=== PATIENT | male | born 1970 | race Caucasian/White ===

== ENCOUNTER → 2016-09-22 | Outpatient (CLI) | payer BC | END | disposition home or self-care (01) | LOC: LABWHC1 12:00 | PROVIDERS: ATTEND Surgery | DX: Z01.812 Encounter for preprocedural laboratory examination (principal) | CPT/HCPCS: 86850; 86900; 86901 ==

== ENCOUNTER 2016-09-26 06:27 | Day surgery (SDC) | payer BC ==
[~2016-09-26 06:27] MED LIST: ceFAZolin 3 GM in SODIUM CHLORIDE 0.9% 100 ML IVPB ONE
[2016-09-26 06:57] VITALS: RESP 16
[2016-09-26] MEDS: LACTATED RINGERS 1,000 ML IV SCH ×2 (07:04→07:25)
[2016-09-26] MEDS: LIDOCAINE 1% 20 ML VIAL (10MG/ML) FOR IV START INTRADERMA PRN ×3 (07:04→07:25)
[2016-09-26] MEDS: ONDANSETRON 4 MG/2 ML VIAL IVP ONE ×3 (07:23→10:46)
[2016-09-26] MEDS: HEPARIN SODIUM,PORCINE 5,000 UNIT/ML 1 ML VIAL SQ ONE ×2 (07:25→07:33)
[2016-09-26] MEDS: DEXAMETHASONE SOD PHOSPHATE 10 MG/ML 1 ML VIAL IV ONE ×2 (07:25→07:32)
[2016-09-26] MEDS ORDERED: BUPIVACAIN-EPI 0.25%-1:200,000 30 ML VIAL SQ ONE ×2 (07:27→09:48)
--- NOTE | 2016-09-26 07:55 | P.GSHP ---
History of Present Illness H&P Date: 09/26/16 Chief Complaint: Incarcerated ventral hernia This is a 46-year-old male referred from Dr. Trujillo. Patient presents today for laparoscopic robotic-assisted repair of incarcerated ventral hernia. Patient developed a tender mass just above the umbilicus. There is an incarcerated ventral hernia. - Constitutional Constitutional: Reports as per HPI Past Medical History Past Medical History: Hyperlipidemia History of Any Multi-Drug Resistant Organisms: None Reported Past Surgical History: No Surgical Hx Reported Past Anesthesia/Blood Transfusion Reactions: No Reported Reaction Past Psychological History: No Psychological Hx Reported Smoking Status: Former smoker Past Alcohol Use History: Occasional Additional Past Alcohol Use History / Comment(s): SMOKING: QUIT 2005, FOR 10 YRS , 1/2 PPD. Past Drug Use History: None Reported - Past Family History Mother Family Medical History: No Reported History Medications and Allergies Home Medications Medication Instructions Recorded Confirmed Type Atorvastatin [Lipitor] 20 mg PO HS 09/19/16 09/26/16 History Allergies Allergy/AdvReac Type Severity Reaction Status Date / Time No Known Allergies Allergy Verified 09/19/16 16:42 Surgical - Exam Vital Signs Temp Pulse Resp BP Pulse Ox 98.1 F 85 16 145/95 98 09/26/16 06:54 09/26/16 06:54 09/26/16 06:54 09/26/16 06:54 09/26/16 06:54 - General well developed, well nourished, no distress - Eyes PERRL - ENT normal pinna - Neck no masses - Respiratory normal expansion - Cardiovascular Rhythm: regular - Abdomen Abdomen: soft, non tender Hernia: incarcerated (Incarcerated ventral hernia located 3 cm above the umbilicus.) Assessment and Plan Plan: Incarcerated ventral hernia. We'll perform laparoscopic robotic-assisted repair.
[2016-09-26] MEDS ORDERED: KETOROLAC 30 MG/ML 1 ML VIAL ONE (08:04)
[2016-09-26] MEDS ORDERED: HYDROmorphone (PF) 1 MG/ML ONE (08:04)
[2016-09-26] MEDS ORDERED: LIDOCAINE 1% INJ 10MG/ML (20 ML MDV) ONE (08:04)
[2016-09-26] MEDS ORDERED: ROCURONIUM BROMIDE 10 MG/ML 10 ML VIAL IV ONE (08:04)
[2016-09-26] MEDS ORDERED: SODIUM CHLORIDE 0.9% 100 ML BAG ONE (08:04)
[2016-09-26] MEDS ORDERED: MIDAZOLAM 2 MG/2 ML VIAL ONE (08:04)
[2016-09-26] MEDS ORDERED: NEOSTIGMINE 1 MG/ML 10 ML VIAL ONE (08:04)
[2016-09-26] MEDS ORDERED: ceFAZolin 1,000 MG VIAL ONE (08:04)
[2016-09-26] MEDS ORDERED: SUCCINYLCHOLINE CHLORIDE 100 MG/5 ML SYR IV ONE (08:04)
[2016-09-26] MEDS ORDERED: fentaNYL (PF) 50 MCG/ML 2 ML AMP ONE (08:04)
[2016-09-26] MEDS ORDERED: GLYCOPYRROLATE 0.2 MG/ML 2 ML VIAL ONE (08:04)
[2016-09-26] MEDS ORDERED: PROPOFOL 10 MG/ML 20 ML VIAL IV ONE (08:04)
--- NOTE | 2016-09-26 10:08 | P.OP ---
Date of Procedure: 09/26/16 Preoperative Diagnosis: Incarcerated ventral hernia Postoperative Diagnosis: Incarcerated ventral hernia Procedure(s) Performed: Laparoscopic robotic-assisted repair of incarcerated ventral hernia with mesh Omentectomy Anesthesia: IRENE Surgeon: Elmer Palma Estimated Blood Loss (ml): 25 Pathology: other (Omentum) Condition: stable Disposition: PACU Description of Procedure: The patient's placed on the operating table in the supine position. He received general anesthesia. His abdomen was prepped and draped usual sterile fashion. Using a 5 mm blade less trocar under direct visualization the peritoneal cavity is entered. And then the abdomen was insufflated. After adequate insufflation a 8 mm robotic trochars placed left lower quadrant and then a 12 mm trochars placed in the left lateral position. And the initial 5 mm trocar was replaced with a 8 mm robotic trocar. The patient's placed in the left side up position. The patient was then docked to the robot. Patient incarcerated omentum. Using the hook cautery and the fenestrated bipolar. The omentum was reduced. The fascial defect was then closed with OV lock suture. Next a piece of ventral light ST mesh was placed into the pelvic cavity and this was secured with 2 OV lock suture. The patient was undocked from the robot. The needles were withdrawn. The incarcerated omentum was placed in Endo Catch and brought out through the 12 mm trocar site. The skin was closed interrupted 3-[address] Gonsales was applied. Patient was sent to recovery in stable condition.
[2016-09-26 10:27] VITALS: TEMP 97.2
[2016-09-26] MEDS: HYDROmorphone 1 MG/ML 1 ML SYRINGE IVP PRN ×2 (10:29→10:35)
[2016-09-26] MEDS ORDERED: HYDROcodone/APAP 7.5-325MG 1 EACH TAB PO ONE (12:21)
[2016-09-26 12:39] VITALS: BP 136/89; PULSE 64
== END 2016-09-26 13:03 | disposition home or self-care (01) ==
LOC: OR 06:27
PROVIDERS: ATTEND Surgery
DX: K43.6 Other and unspecified ventral hernia with obstruction, without gangrene (principal); E78.5 Hyperlipidemia, unspecified; Z87.891 Personal history of nicotine dependence; Z79.899 Other long term (current) drug therapy
CPT/HCPCS: 49653; 86900; 86901; 88305; 86850; C1781; J2250; J1644; J1100; J2710; J2405; J0690; J2001; J3010; J1885; J1170; J0330; J2704

== ENCOUNTER → 2017-08-07 | Outpatient (CLI) | payer BC ==
--- NOTE | 2017-08-07 23:52 | MR ---
EXAMINATION TYPE: MR knee RT wo con DATE OF EXAM: 08/07/2017 COMPARISON: NONE HISTORY: Right knee pain with swelling and locking for 5 months TECHNIQUE: Multiplanar, multisequence imaging of the right knee is performed without IV contrast. FINDINGS: There is a moderately large knee joint effusion. The anterior and posterior cruciate ligaments are in tact. The collateral ligaments appear intact. There is mild subcutaneous edema around the knee joint. There is mild increased signal on the T2 images in the subchondral lateral femoral condyle. There is some truncation of the posterior horn of the medial meniscus. There is increased signal in the infer ior aspect of the posterior horn lateral meniscus. IMPRESSION: No evidence of ligamentous tear. Large knee joint effusion. Mild bone bruise in the lateral femoral condyle. There is a vertical tear in the posterior horn medial meniscus. There is small intrasubstance tear of the posterior horn of the lateral meniscus.
== END | disposition home or self-care (01) ==
LOC: RADMRIMAIN 20:33
PROVIDERS: ATTEND Orthopaedic Surgery
DX: S83.241A Other tear of medial meniscus, current injury, right knee, initial encounter (principal); S83.281A Other tear of lateral meniscus, current injury, right knee, initial encounter; S80.01XA Contusion of right knee, initial encounter

== ENCOUNTER → 2017-09-19 | Outpatient (CLI) | payer BC ==
[2017-09-19 17:21] LABS: Basophils # (A) 0.1 k/uL (0-0.2); Basophils % (A) 1 %; Eosinophils # (A) 0.1 k/uL (0-0.7); Eosinophils % (A) 1 %; HCT 45.6 % (39.0-53.0); HGB 15.1 gm/dL (13.0-17.5); Lymphocytes # (A) 2.6 k/uL (1.0-4.8); Lymphocytes % (A) 32 %; MCH 29.8 pg (25.0-35.0); MCHC 33.2 g/dL (31.0-37.0); MCV 89.8 fL (80.0-100.0); Mean Platelet Volume 8.7; Monocytes # (A) 0.5 k/uL (0-1.0); Monocytes % (A) 7 %; Neutrophils # (A) 4.7 k/uL (1.3-7.7); Neutrophils % (A) 58 %; Platelet Count 281 k/uL (150-450); RBC 5.07 m/uL (4.30-5.90); RDW 13.3 % (11.5-15.5); WBC 8.1 k/uL (3.8-10.6)
[2017-09-19 17:31] LABS: Potassium 4.5 mmol/L (3.5-5.1)
== END | disposition home or self-care (01) ==
LOC: LABPAT 15:58
PROVIDERS: ATTEND Orthopaedic Surgery
DX: Z01.818 Encounter for other preprocedural examination (principal); M23.91 Unspecified internal derangement of right knee
CPT/HCPCS: 36415; 80051; 85025; 93005

== ENCOUNTER 2017-09-25 10:29 | Day surgery (SDC) | payer BC ==
[2017-09-18 23:26] VITALS: BMI 40.0
--- NOTE | 2017-09-24 11:35 | HP ---
HISTORY AND PHYSICAL Surgery is 09/25/2017. Matthew Francis is a 47-year-old patient seen with progressive right knee pain. We discussed treatment options. He elected to proceed with arthroscopy. Consent regarding procedure was obtained. PAST MEDICAL HISTORY: Noncontributory. PAST SURGICAL HISTORY: Herniorrhaphy. DAILY MEDICATIONS: None. ALLERGIES: None reported. SOCIAL HISTORY: Patient denies tobacco use. PHYSICAL EXAMINATION: Physical evaluation right knee: Range of motion 0 to 125 degrees. Moderate intra- articular effusion. Tenderness medial joint line. Positive medial Betsey's. Ligaments are stable. Hip rotation is without pain. Distal neurovascular exam is intact. Right knee radiographs revealed mild osteoarthritis. MRI right knee revealed medial meniscal tear. IMPRESSION: Internal derangement right knee with medial meniscal tear. PLAN: Right knee arthroscopy with partial meniscectomy and debridement. MMODL / IJN: [id number] /
[~2017-09-25 10:29] MED LIST changes: +DEXAMETHASONE SOD PHOSPHATE 10 MG/ML 1 ML VIAL IV ONE; +LACTATED RINGERS 1,000 ML IV SCH; +MIDAZOLAM 2 MG/2 ML VIAL IV PRN; +ONDANSETRON 4 MG/2 ML VIAL IVP ONE; -ceFAZolin 3 GM in SODIUM CHLORIDE 0.9% 100 ML IVPB ONE
[2017-09-25] MEDS ORDERED: LIDOCAINE 1% 20 ML VIAL (10MG/ML) FOR IV START INTRADERMA ONE (11:40)
[2017-09-25] MEDS ORDERED: fentaNYL (PF) 50 MCG/ML 2 ML AMP ONE (12:13)
[2017-09-25] MEDS ORDERED: LIDOCAINE 1% INJ 10MG/ML (20 ML MDV) ONE (12:13)
[2017-09-25] MEDS ORDERED: KETOROLAC 30 MG/ML 1 ML VIAL ONE (12:13)
[2017-09-25] MEDS ORDERED: MIDAZOLAM 2 MG/2 ML VIAL ONE (12:13)
[2017-09-25] MEDS ORDERED: PROPOFOL 10 MG/ML 20 ML VIAL IV ONE (12:13)
[2017-09-25] MEDS ORDERED: SUCCINYLCHOLINE CHLORIDE VIAL 200 MG/10 ML VIAL IV ONE (12:13)
[2017-09-25] MEDS ORDERED: BUPIVACAINE (PF) 0.25% 30 ML VIAL INTRAARTIC ONE (12:13)
[2017-09-25 13:09] VITALS: RESP 16; TEMP 97.4
--- NOTE | 2017-09-25 13:10 | P.OP ---
Date of Procedure: 09/25/17 Preoperative Diagnosis: Internal derangement right knee Postoperative Diagnosis: 1. Tear medial and lateral meniscus right knee 2. Grade 2/3 chondromalacia medial femoral condyle right knee 3. Grade 2 chondromalacia lateral tibial plateau right knee 4. 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 Reactive synovitis medial and suprapatellar compartments right knee Procedure(s) Performed: 1. Arthroscopic partial medial and lateral meniscectomy right knee 2. Arthroscopic chondroplasty medial femoral condyle right knee 3. Arthroscopic chondroplasty lateral tibial plateau right knee 4. Arthroscopic chondroplasty patellofemoral joint right knee 5. Arthroscopic partial synovectomy medial and suprapatellar compartments right knee Anesthesia: IRENE, local Surgeon: Christian Mercado Estimated Blood Loss (ml): 10 Pathology: none sent Condition: stable Disposition: PACU Indications for Procedure: 47-year-old patient seen with progressive right knee pain. After treatment options were discussed, he elected to proceed with arthroscopy. Operative Findings: See description of procedure Description of Procedure: Patient was taken to the operative suite. Patient underwent a general anesthetic by the department of anesthesia. Patient was given preoperative antibiotics. The right lower extremity was placed in a well-padded arthroscopic leg ivan. The right leg was prepped and draped in the normal sterile orthopedic fashion. A lateral parapatellar and suprapatellar incision was made. Trochars were inserted. Arthroscopy was initiated. Suprapatellar pouch revealed diffuse thick reactive synovitis. The patellofemoral joint appeared to articulate congruently. There was grade 3 chondromalacia of the patella and grade 4 chondromalacia of the femoral sulcus with osteochondral tears present on both sides. The scope was guided into the medial gutter. No loose bodies or plica were identified. The scope was then guided into the medial compartment. A medial parapatellar incision was made. Trocar inserted followed by probe. There was a complex tear involving the posterior horn of the medial meniscus. There were grade 2/3 chondromalacia changes of the medial femoral condyle with osteochondral tears present. There were grade 1 chondromalacia changes of the tibial plateau. There was reactive synovitis anteriorly. I performed a partial medial meniscectomy down to stable tissue. I performed a chondroplasty of the medial femoral condyle down to stable tissue and partial synovectomy. The residual meniscus and osteochondral surface were found to be stable. Scope and probe were then guided into the intercondylar notch. Cruciates were identified, probed and found to be stable. The scope and probe were then guided into lateral compartment. There was some superficial tearing of the midbody lateral meniscus. There were grade 2 chondromalacia changes of the lateral tibial plateau with osteochondral tears. There were grade 1 chondromalacia changes of the lateral femoral condyle. I performed a partial lateral meniscectomy down to stable tissue. I performed a chondroplasty of the tibial plateau down to stable tissue. The residual meniscus and osteochondral surface was stable. The scope was in guided back into the suprapatellar compartment. I introduced a motorized shaver into the super patellar compartment. I debrided some piecemeal fragments of meniscus I encountered. I performed a chondroplasty of the patella and femoral sulcus down to stable tissue. I performed a partial synovectomy. The residual surfaces were stable but there was a area of exposed bony surface of the femoral sulcus. I took one more look around the entire knee, no residual debris. Instruments were now removed from the joint. The joint was infiltrated with .25% Marcaine. Steri-Strips were applied to the portal sites. Sterile dressings were applied. The patient was placed into a [facility] hose. No tourniquet was utilized. The patient was awakened, transferred to a bed and taken to recovery stable satisfactory condition.
[2017-09-25] MEDS: HYDROmorphone 0.5 MG/0.5 ML SYRINGE IVP PRN ×2 (13:27→13:33)
[2017-09-25] MEDS ORDERED: HYDROcodone/APAP 7.5-325MG 1 EACH TAB PO ONE (14:28)
[2017-09-25 15:19] VITALS: BP 132/76; PULSE 64
== END 2017-09-25 15:41 | disposition home or self-care (01) ==
LOC: OR 10:29
PROVIDERS: ATTEND Orthopaedic Surgery
DX: S83.241A Other tear of medial meniscus, current injury, right knee, initial encounter (principal); S83.281A Other tear of lateral meniscus, current injury, right knee, initial encounter; X58.XXXA Exposure to other specified factors, initial encounter; M22.41 Chondromalacia patellae, right knee; M65.861 Other synovitis and tenosynovitis, right lower leg; Z87.891 Personal history of nicotine dependence; Z79.891 Long term (current) use of opiate analgesic; Z79.899 Other long term (current) drug therapy
CPT/HCPCS: 29880; J2250; J0330; J1100; J0690; J2405; J2001; J3010; J1885; J2704; J1170

== ENCOUNTER 2023-05-24 12:06 | Day surgery (SDC) | payer BC ==
[~2023-05-24 12:06] MED LIST changes: -DEXAMETHASONE SOD PHOSPHATE 10 MG/ML 1 ML VIAL IV ONE; -MIDAZOLAM 2 MG/2 ML VIAL IV PRN; -ONDANSETRON 4 MG/2 ML VIAL IVP ONE
[2023-05-24 13:34] VITALS: TEMP 97
[2023-05-24] MEDS ORDERED: PROPOFOL 10 MG/ML 20 ML VIAL IV ONE (14:00)
--- NOTE | 2023-05-24 14:24 | P.PCN ---
Date of Procedure: 05/24/23 Procedure(s) Performed: BRIEF HISTORY: Patient is a 52-year-old pleasant white male scheduled for an elective colonoscopy as a part of screening for colon cancer. PROCEDURE PERFORMED: Colonoscopy with snare polypectomy. PREOPERATIVE DIAGNOSIS: Screening for colon cancer. IV sedation per Anesthesia. PROCEDURE: After informed consent was obtained, the patient, was brought into the endoscopy unit. IV sedation was administered by Anesthesia under continuous monitoring. Digital rectal examination was normal. Initially the Olympus CF-160 flexible video colonoscope was then inserted in the rectum, gradually advanced into the cecum without any difficulty. Careful examination was performed as the scope was gradually being withdrawn. Ileocecal valve and the appendiceal orifice were visualized and appeared normal. Prep was excellent. Mucosa of the cecum, ascending colon, transverse colon, normal. In the descending colon at 45 cm from the anal was there was a 1.5 cm presently related polyp removed by snare polypectomy. Rest of the descending colon, sigmoid colon, and rectum appeared normal. Retroflexion was performed in the rectum and no lesions were seen. The patient tolerated the procedure well. IMPRESSION: 1.5 cm descending colon polyp status post polypectomy Rest of the colon appeared normal RECOMMENDATIONS: Findings of this examination were discussed with the patient as well as his family. He was advised to follow with the biopsy results. If the biopsy result adenoma he can have a repeat colonoscopy in 3 years..
[2023-05-24 14:44] VITALS: BP 118/78; PULSE 78; RESP 18
== END 2023-05-24 15:07 | disposition home or self-care (01) ==
LOC: ORWHC2ENDO 12:06
PROVIDERS: ATTEND Internal Medicine Gastroenterology
DX: Z12.11 Encounter for screening for malignant neoplasm of colon (principal); D12.4 Benign neoplasm of descending colon; E78.5 Hyperlipidemia, unspecified; Z79.891 Long term (current) use of opiate analgesic; Z79.899 Other long term (current) drug therapy; Z98.890 Other specified postprocedural states
CPT/HCPCS: 45385; J2704; 88305

== ENCOUNTER → 2024-01-29 | Outpatient (CLI) | payer BC ==
--- NOTE | 2024-01-29 14:27 | XR ---
EXAMINATION TYPE: XR knee complete LT DATE OF EXAM: 01/29/2024 COMPARISON: None HISTORY: 53-year-old male M25.562, left knee pain TECHNIQUE: 3 views FINDINGS: There is a [id number] knee joint effusion. Extensor mechanism is intact. Minimal degenerative spurring patellofemoral and medial compartments. No acute fracture, subluxation, or dislocation seen. IMPRESSION: 1. Minimal degenerative spurring medial and patellofemoral compartments. No acute osseous abnormality seen. 2. However, there is a [id number] knee joint effusion. If symptoms persist or concern for inte rnal derangement, MRI can be performed.
== END | disposition home or self-care (01) ==
LOC: RADXRMAIN 11:53
PROVIDERS: ATTEND Internal Medicine
DX: M25.562 Pain in left knee (principal); M79.662 Pain in left lower leg

== ENCOUNTER → 2024-02-17 | Outpatient (CLI) | payer BC ==
--- NOTE | 2024-02-18 06:06 | MR ---
EXAMINATION TYPE: MR knee LT wo con DATE OF EXAM: 02/17/2024 COMPARISON: Outside left knee x-ray February 14, 2024 HISTORY: Left medial knee pain TECHNIQUE: Multiplanar, multisequence images of the knee is performed without IV contrast. FINDINGS: MEDIAL MENISCUS: Anterior and posterior horns are intact without tear. LATERAL MENISCUS: Anterior and posterior horns are intact without tear. CRUCIATE LIGAMENTS: The anterior and posterior cruciate ligaments are intact and unremarkable. COLLATERAL LIGAMENTS: The medial collateral ligament and lateral collateral ligament complex are inta ct. Fluid surrounds the medial collateral ligament. EXTENSOR MECHANISM: Visualized quadriceps and patellar tendons are intact. EFFUSION: Qhxgg-uo-zopnkypn size suprapatellar joint effusion. POPLITEAL CYST: No popliteal/jefferson cyst. TRICOMPARTMENT SPACES: Mild to moderate tricompartment joint space loss. No significant spurring. CARTILAGE: Tricompartment articular cartilage is preserved. BONE MARROW SIGNAL: No focal abnormal marrow signal is appreciated. OTHER: Mild diffuse subcutaneous edema. IMPRESSION: 1. Moderate MCL sprain injury. 2. Small to moderate-sized suprapatellar joint effusion. 3. No meniscal or ligamentous tear is seen.
== END | disposition home or self-care (01) ==
LOC: RADMRIMAIN 21:45
PROVIDERS: ATTEND Internal Medicine
DX: M25.462 Effusion, left knee (principal); S83.412A Sprain of medial collateral ligament of left knee, initial encounter

== ENCOUNTER → 2024-04-23 | Outpatient (CLI) | payer BC | END | disposition home or self-care (01) | LOC: LABWHC1 14:46 | PROVIDERS: ATTEND Orthopaedic Surgery | DX: Z01.818 Encounter for other preprocedural examination | CPT/HCPCS: 36415; 80051; 85025 ==

== ENCOUNTER 2024-04-29 10:30 | Day surgery (SDC) | payer BC ==
[~2024-04-29 10:30] MED LIST changes: +DEXAMETHASONE SOD PHOSPHATE 4 MG/ML 1 ML VIAL ONE; -LACTATED RINGERS 1,000 ML IV SCH; +ONDANSETRON 4 MG/2 ML VIAL ONE
[2024-04-29] MEDS ORDERED: fentaNYL (PF) 50 MCG/ML 2 ML AMP ONE (11:34)
[2024-04-29] MEDS ORDERED: LIDOCAINE 1% INJ 10MG/ML (20 ML MDV) ONE (11:34)
[2024-04-29] MEDS ORDERED: HYDROmorphone (PF) 1 MG/ML ONE (11:34)
[2024-04-29] MEDS ORDERED: SUCCINYLCHOLINE CHLORIDE 200 MG/10 ML VIAL IV ONE (11:34)
[2024-04-29] MEDS ORDERED: MIDAZOLAM 2 MG/2 ML VIAL ONE (11:34)
[2024-04-29] MEDS ORDERED: PROPOFOL 10 MG/ML 20 ML VIAL IV ONE (11:34)
[2024-04-29] MEDS ORDERED: BUPIVACAINE (PF) 0.25% 30 ML VIAL ONE (12:00)
[2024-04-29] MEDS ORDERED: HYDROcodone/APAP 5-325MG 1 EACH TAB ONE (13:19)
--- NOTE | 2024-05-08 15:53 | HP ---
HISTORY AND PHYSICAL DATE OF SURGERY: 04/29/2024. HISTORY OF PRESENT ILLNESS: Matthew Francis is a gentleman seen with progressive left knee pain. We discussed options regarding treatment. He elected to proceed with left knee arthroscopy. Consent was obtained. PAST MEDICAL HISTORY: Noncontributory. PAST SURGICAL HISTORY: Noncontributory. DAILY MEDICATIONS: None. SOCIAL HISTORY: Denies tobacco use. PHYSICAL EVALUATION OF THE LEFT KNEE: Range of motion is -1 to 120 degrees. Mild effusion. Tenderness along the medial and lateral joint lines. Positive medial Betsey's. Positive lateral Betsey's. Ligaments stable. Hip rotation without pain. Distal neurovascular exam is intact. MRI of the left knee revealed medial and lateral meniscal tears. IMPRESSION: Internal derangement of left knee with medial and lateral meniscal tears. PLAN: Left knee arthroscopy with partial medial/lateral meniscectomy and debridement. MMODL / IJN: [id number] /
--- NOTE | 2024-05-08 15:53 | OP ---
OPERATIVE REPORT DATE OF SERVICE : 04/29/2024 PREOPERATIVE DIAGNOSIS: Internal derangement, left knee. POSTOPERATIVE DIAGNOSES: 1. Medial and lateral meniscal tears, left knee. 2. Grade 4 chondromalacia, medial femoral condyle, left knee. 3. Grade 4 chondromalacia of femoral sulcus, left knee. 4. Reactive synovitis, medial, lateral, and suprapatellar compartments, left knee. PROCEDURES: 1. Arthroscopic partial medial and lateral meniscectomy, left knee. 2. Arthroscopic microfracture, medial femoral condyle, left knee. 3. Arthroscopic microfracture, femoral sulcus, left knee. 4. Arthroscopic partial synovectomy, medial, lateral, and suprapatellar compartments, left knee. ANESTHESIA: General. ESTIMATED BLOOD LOSS: 7 mL. COMPLICATIONS: None. The patient tolerated the procedure well. INDICATIONS: Matthew Francis is a gentleman seen with progressive left knee pain. We discussed options regarding treatment. He elected to proceed with arthroscopy. Consent was obtained. DESCRIPTION OF PROCEDURE: The patient was taken to the operative suite. He underwent a general anesthetic by the Department of Anesthesia. He received preoperative IV antibiotics. Left lower extremity was placed in a well-padded arthroscopic leg ivan. He was prepped and draped in normal sterile orthopedic fashion. A lateral parapatellar incision was made. Trocar was inserted followed by arthroscope. Arthroscopy was initiated. Suprapatellar compartment revealed reactive thick synovitis. There were grade 2/3, changes of the patella without significant tears. The scope was guided into the medial gutter. No loose bodies. The scope was guided into the medial compartment. There was a tear involving the midbody of the posterior horn of the medial meniscus. There were areas of grade 3/4 chondromalacia of the medial femoral condyle with large osteochondral flap tears. There was thick reactive synovitis anteriorly. I performed a partial medial meniscectomy, getting down to a stable meniscal tissue. I performed a partial synovectomy decompressing the reactive synovitis and getting down a stable osteochondral tissue followed by partial synovectomy. I did note an area of grade 4 chondromalacia involving the central area of weightbearing surface medial femoral condyle measuring just under a centimeter with exposed bone. I did some microfracture on. I performed a microfracture to the area of exposed medial femoral condyle penetrating the bone with resultant bleeding at the microfracture site. The residual meniscus was probed and was found to be stable. The residual osteochondral surface appeared stable. There was good decompression of that synovitis. The scope was then guided into the Intercondylar notch, the ACL was identified. Probe found to be stable. The scope was guided into lateral compartment, probe was inserted. There was a radial tear involving the bilateral meniscus. There was grade 2 chondromalacia changes of the lateral femoral condyle with an area of osteochondral flap tearing and some thick reactive synovitis anteriorly. I performed a partial lateral meniscectomy and gained a stable meniscal tissue. I performed a chondroplasty of the lateral femoral condyle and gained stable osteochondral tissue. I performed a partial synovectomy decompressing the reactive synovitis. The residual meniscus was stable. The residual osteochondral surface was stable. There was good decompression of synovitis. I now guided the scope back into the suprapatellar compartment. I performed a chondroplasty of the patellofemoral sulcus. I performed a partial synovectomy decompressing the reactive synovitis. I did note there were exposed bone along the femoral sulcus measuring 1.5 x 1 cm. I identified some microfracture on. I performed my microfracture to there have exposed bone femoral sulcus penetrating the bone with resultant bleeding at the microfracture site. The osteochondral surface was probed, was found to be stable. There was good decompression of the synovitis. I took 1 more look upon the entire knee, no residual debris. At this point, instruments were removed from the joint. The portal sites were repaired with Steri-Strips. Sterile dressings were applied followed by [facility] jones. The patient was then awakened, transferred to recovery in stable condition having tolerated the procedure well. MMODL / IJN: [id number] /
== END 2024-04-29 14:00 ==
LOC: OR 10:30
PROVIDERS: ATTEND Orthopaedic Surgery
DX: S83.242A Other tear of medial meniscus, current injury, left knee, initial encounter (principal); S83.282A Other tear of lateral meniscus, current injury, left knee, initial encounter; M22.42 Chondromalacia patellae, left knee; M65.162 Other infective (teno)synovitis, left knee; E78.5 Hyperlipidemia, unspecified; Z79.899 Other long term (current) drug therapy; X58.XXXA Exposure to other specified factors, initial encounter